=== PATIENT | female | born 1935 | race Caucasian/White ===

== ENCOUNTER 2017-12-31 05:24 | Day surgery (SDC) | payer OTHER ==
[2017-12-08 09:01] LABS: URINE BILIRUBIN NEGATIVE (Negative); URINE BLOOD NEGATIVE (Negative); URINE CLARITY CLEAR; URINE COLOR YELLOW; URINE GLUCOSE-RANDOM* NEGATIVE (Negative); URINE KETONES NEGATIVE (Negative); URINE LEUKOCYTES-REFLEX NEGATIVE (Negative); URINE NITRITE-REFLEX NEGATIVE (Negative); URINE PROTEIN (DIPSTICK) NEGATIVE (Negative); URINE SPECIFIC GRAVITY >= 1.030 (1.005-1.035); URINE UROBILINOGEN 0.2 E.U./dl (0.2-1.0)
[2017-12-08 09:04] LABS: PROTIME 10.2 Seconds (9.3-11.4)
[~2017-12-31] VITALS: Ht 160 cm; Wt 62.6 kg
--- NOTE | ~2017-12-31 | O ---
[facility] [place] [address] OPERATIVE REPORT Name: THIERNO LOYOLA STEPHANIE Room #: 411-P [facility] M.R.#: [id number] Admission: 12/31/17 Attend Phys: Davon Bell Discharge: Date of : 37 Report #: [id number] THIS REPORT FOR: //name// CC: Davon Rey DATE OF SERVICE: 12/31/2017 PREOPERATIVE DIAGNOSES: Left shoulder pain, osteoarthritis, partial thickness rotator cuff tear, biceps tendinopathy. POSTOPERATIVE DIAGNOSES: Left shoulder osteoarthritis, biceps tendinopathy, partial thickness anterior supraspinatus rotator cuff tear. PROCEDURE: Left total shoulder arthroplasty with open biceps tenodesis and rotator cuff repair. SURGEON: Davon Escobedo MD ANESTHESIA: General. FLUIDS: 850 mL crystalloid. ESTIMATED BLOOD LOSS: Approximately 75 mL. IMPLANTS UTILIZED: DePuy [employer] Unite size 10 stem porous-coated, 135 degree proximal body with a 44 x 18 mm eccentric humeral head and a 40 mm anchor peg glenoid. DESCRIPTION OF PROCEDURE: After proper identification of the patient and the operative site in preoperative holding area, the operative site was signed by myself. Prophylactic antibiotics were given. The patient elected to receive an ultrasound-guided interscalene block after reviewing the risks, benefits, alternatives and potential complications with anesthesia. After induction of satisfactory general endotracheal anesthesia, the left shoulder was examined. It was stable throughout a range of motion comparable to the preoperative assessment. The patient was carefully positioned in a beach chair position with head of bed elevated approximately 40 degrees. Great care was taken with positioning of the head to keep this in a neutral position. The patient had an indwelling interscalene block catheter, which had remained in place as well. The left shoulder was sterilely prepped and draped in usual manner. Final skin draping was with Ioban. A LV [employer] limb positioning system was utilized throughout the entire procedure. Anterior deltopectoral approach was planned. Skin was incised sharply. Full thickness skin flaps were developed. The deltopectoral interval was identified. Cephalic vein was retracted laterally. Subdeltoid adhesions were carefully freed and a brown retractor was used to [address] [address] OPERATIVE REPORT Name: THIERNO LOYOLA STEPHANIE Room #: 411-P [facility] M.Osvaldo.#: [id number] Admission: 12/31/17 Attend Phys: Davon Bell Discharge: Date of : 37 Report #: [id number] retract the deltoid. Long head of biceps tendon was tenodesed to the undersurface of the pectoralis major tendon. It was followed up to the bicipital groove, which was opened. Extensive tenosynovitis was appreciated around the bicipital groove and rotator interval was then opened. Some mild partial thickness tearing of the more anterior supraspinatus was appreciated and this was amenable to repair with rotator interval closure and did not appear to compromise the overall plan for regular total shoulder arthroplasty. At this point, the anterior circumflex vessels were identified, ligated and cauterized. A lesser tuberosity osteotomy was performed of the subscapularis and this was released with an osteotome and then the remaining capsule was released with cautery. The humeral head was rotated out into the wound. A complete loss of cartilage and eburnation of the bone was appreciated. Large peripheral spurring was removed with an osteotome or with a rongeur. A 135 degree humeral head cut in approximately 25 degrees of retroversion matching her the [place] version was performed. The remainder of the rotator cuff was intact. Humeral head osteotomy was performed. Head measured 44 x 18 mm, provided the best recreation of the proximal humeral anatomy. Any remaining peripheral osteophytes were carefully removed. Canal was reamed up to a size 10 stem, which matched the preoperative templating. A trial implant was utilized after it had been broached for the fins. This was fully seated. Protection plate was applied. Shoulder was reduced. Anterior capsule was carefully divided off the subscapularis. Great care was taken to preserve and identify and protect the axillary nerve throughout the entire procedure. The remaining long head of the biceps tendon stump, labrum and inferior capsule was carefully released directly off the glenoid. A complete chondral loss was noted on the glenoid. Any remaining soft tissue around the glenoid was carefully debrided. Humerus was externally rotated and there was excellent glenoid visualization. A 40 mm glenoid provided the best overall fit and size match. The glenoid guide for the guide pin was placed. This guide pin was inserted into the center of the glenoid. This was then reamed until there was a symmetric bony support of the subchondral bone for the implant and small amount of the high side anteriorly was removed with the reaming as compared to posteriorly. The remaining bony lip was then carefully removed. Step drill was utilized. Bone was saved for bone grafting. At this point, the multipin guide for the anchor peg glenoid was carefully impacted into position. Peripheral pegs were drilled. Derotation pegs were utilized and all 3 pegs were contained as well as central pin. A 40 mm trial provided excellent fit and stability. This was removed. Joint was thoroughly irrigated with normal saline. FloSeal was utilized for anticoagulation and the implant was bone grafted and then bone cement was prepared on the backtable after the FloSeal was irrigated out. The peripheral pegs were cemented with the Tuohy syringe and pressurized. Any excess bone was carefully removed and glenoid was impacted into position. It was fully seated, stable and held into position until the cement had cured. At this point, a trial 44 x 18 mm head compared to a 15 mm head was trialled and the 18 provided the best recreation of the proximal humeral anatomy in AP translation. Trial implants were removed. Four drill holes were placed within the anterior aspect [address] [address] OPERATIVE REPORT Name: THIERNO LOYOLA [facility] Room #: 411-P [facility] M.R.#: [id number] Admission: 12/31/17 Attend Phys: Davon Bell Discharge: Date of : 37 Report #: [id number] of the humerus where #2 FiberWires were passed. The stem was assembled on the backtable. It was porous-coated. The inferior 2 sutures were wrapped around the stem. The stem was impacted into position and had excellent fit and then a 44 mm x 18 mm head was impacted into position. There was a satisfactory recreation of the proximal humeral anatomy. The joint was reduced and had approximately 50% translation posteriorly. At this point, the subscapularis was repaired with four #2 FiberWires in a modified Jerry-Denis technique and the anterior leading edge of the supraspinatus and the rotator cuff was repaired with #2 FiberWire in a simple [id number] fashion. This nicely reduced the partial thickness tearing and the rotator interval. The patient could easily be rotated 40 degrees without any undue tension on the subscapularis. The wound was thoroughly irrigated with normal saline. One gram of vancomycin powder was utilized. A 0 Vicryl was used to close the deltopectoral fascia, 2-0 Vicryl of the more subcutaneous tissues and final skin closure was with running 3-0 Monocryl. Dermabond was applied. Sterile dressing and a sling was applied. The patient will utilize a sling for 4 weeks postoperatively. <ELECTRONICALLY SIGNED> By: Davon Escobedo MD 01/01/18 1316 [id number] 1730 Davon Escobedo MD /nt
[~2017-12-31 05:24] MED LIST: CALCIUM 500 +1 EAC5 PO; MULTIVITAMINS PO; NORCO 5-325 TA1 EACH PO; TYLENOL EXTRA500 MG PO
[2017-12-31 12:50] VITALS: BP 136/74
[2017-12-31 20:00] VITALS: BP 131/79
[2018-01-01] VITALS: BP 125/73
[2018-01-01 04:00] VITALS: BP 123/68
[2018-01-01 06:45] LABS: HEMATOCRIT 36.2 % (37.0-47.0); HEMOGLOBIN 11.9 gm/dL (12.0-15.0)
[2018-01-01 06:50] LABS: POTASSIUM 4.4 mmol/L (3.5-5.1)
[2018-01-01 08:07] VITALS: BP 136/69
[2018-01-01 15:53] VITALS: BP 136/69
[2018-01-01 16:26] VITALS: BP 136/69
== END 2018-01-01 16:50 | disposition home or self-care (01) ==
LOC: OR 05:24 → TBA 05:26 → PRE 11:20 → EDSTATUS 14:58 → OR 15:01 → 4N 15:56 → ENTRNSPT 01-01 16:34 → OR 01-01 16:50
PROVIDERS: Orthopaedic Surgery Sports Medicine
DX: M19.012 Primary osteoarthritis, left shoulder (principal); M75.22 Bicipital tendinitis, left shoulder; M75.102 Unspecified rotator cuff tear or rupture of left shoulder, not specified as traumatic; Z88.2 Allergy status to sulfonamides; Z88.8 Allergy status to other drugs, medicaments and biological substances; Z85.828 Personal history of other malignant neoplasm of skin; Z90.710 Acquired absence of both cervix and uterus; Z98.890 Other specified postprocedural states

== ENCOUNTER → 2019-05-14 | Outpatient (CLI) | payer OTHER | LOC: RAD 16:09 | DX: Z01.818 Encounter for other preprocedural examination (principal); R06.02 Shortness of breath ==

== ENCOUNTER 2019-05-31 09:02 | Inpatient (IN) | payer OTHER ==
[~2019-05-31] VITALS: Ht 160 cm; Wt 60.8 kg
[2019-05-31 10:18] LABS: HEMATOCRIT 39.1 % (37.0-47.0); HEMOGLOBIN 13.1 gm/dL (12.0-15.0); MCH 31.2 pg (26.0-34.0); MCHC 33.4 g/dL (28.0-37.0); MCV 93.2 fL (80.0-100.0); RBC 4.19 mil/uL (4.20-5.00); WBC 4.7 thou/uL (4.0-11.0)
[2019-05-31 10:19] LABS: URINE BILIRUBIN NEGATIVE (Negative); URINE BLOOD NEGATIVE (Negative); URINE CLARITY SL CLOUDY; URINE COLOR YELLOW; URINE GLUCOSE-RANDOM* NEGATIVE (Negative); URINE KETONES NEGATIVE (Negative); URINE LEUKOCYTES-REFLEX TRACE (Negative); URINE NITRITE-REFLEX NEGATIVE (Negative); URINE PROTEIN (DIPSTICK) NEGATIVE (Negative); URINE SPECIFIC GRAVITY 1.015 (1.005-1.035); URINE UROBILINOGEN 0.2 E.U./dl (0.2-1.0)
[2019-05-31 10:29] LABS: CALCIUM 9.7 mg/dL (8.5-10.1); CREATININE 0.9 mg/dL (0.6-1.0); POTASSIUM 4.8 mmol/L (3.5-5.1)
[2019-05-31 10:32] LABS: PROTIME 10.2 Seconds (9.3-11.4)
[2019-06-09 18:35] VITALS: BP 117/62
[2019-06-09 19:44] VITALS: BP 135/79
[2019-06-10 04:54] VITALS: BP 118/67
--- NOTE | 2019-06-10 06:12 | NUR ---
ASSUMED CARE OF PT @1900 PT ASSESSED AT START OF SHIFT A&OX4 DENIES PAIN. ARM BRACE IN RT SHOULDER INTACT AND ICE PACK INTACT. IV FLUIDS INFUSING. PT HAS URINE FREQ. FALL PREC IN PLACE AND CALL LIGHT WITHIN REACH WILL CONT WITH POC TILL EOS
[2019-06-10 06:14] LABS: HEMATOCRIT 33.8 % (37.0-47.0); HEMOGLOBIN 11.2 gm/dL (12.0-15.0)
[2019-06-10 06:25] LABS: POTASSIUM 4.1 mmol/L (3.5-5.1)
[2019-06-10 07:40] VITALS: BP 111/62
[2019-06-10 14:24] VITALS: BP 111/62
--- NOTE | 2019-06-10 17:18 | NUR ---
ASSESSMENT-PT LIVES AT HOME ALONE BUT SHE HAS 8 CHILDREN IN THE AREA AND SHE SAYS THEY WILL BE ABLE TO ASSIST HER NEEDED. PT SAYS PRIOR TO THIS SHE WAS STILL WORKING WELL. PT DRIVES. PT SAYS SHE PLANS TO DC THIS AFTERNOON AND VOICES NO CONCERNS RELATED TO DC. FOLLOWING TO ASSIST WITH DC PLANNING.
--- NOTE | 2019-06-10 21:33 | NUR ---
PATIENT ALERT AND ORIENTED AND DISCHARGED WITH SON TO HOME IN STABLE CONDITION WITH DISCHARGE ORDERS, PRESCRIPTIONS, ALL PERSONAL BELONGINGS.
--- NOTE | 2019-07-07 11:38 | O ---
[facility] [place] [address] OPERATIVE REPORT Name: THIERNO LOYOLA STEPHANIE Room #: 439-P [facility] M.R.#: [id number] Admission: 06/09/19 Attend Phys: Davon Bell Discharge: 06/10/19 Date of : 37 Report #: [id number] THIS REPORT FOR: //name// CC: Davon Rey DATE OF SERVICE: 06/09/2019 PREOPERATIVE DIAGNOSES: Right shoulder pain, osteoarthritis, biceps tendinopathy. POSTOPERATIVE DIAGNOSES: Right shoulder pain, osteoarthritis, biceps tendinopathy. PROCEDURE PERFORMED: Right total shoulder arthroplasty with open biceps tenodesis. SURGEON: Davon Escobedo MD TEXTILE BROKER: Phuong Garcia PA-C. ANESTHESIA: General with preoperative ultrasound-guided interscalene block. FLUIDS: 500 mL crystalloid. ESTIMATED BLOOD LOSS: Approximately 75 mL. IMPLANTS UTILIZED: DePuy [employer] Unite size 10 stem and proximal body 135 degree, 44 x 18 mm eccentric humeral head and a size 40 [employer] [place] Peg glenoid. DESCRIPTION OF PROCEDURE: After proper identification of the patient and operative site in the preoperative holding area, the operative site was signed by myself. Prophylactic antibiotics were given. The patient elected to receive a block after reviewing the risks, benefits, alternatives and potential complications with anesthesia. After a satisfactory block, the patient was brought back to the operative suite. After induction of satisfactory general endotracheal anesthesia, the patient was carefully positioned; beach chair was utilized. Head of bed was elevated to approximately 40 degrees, and the head and neck were carefully positioned. Shoulder was sterilely prepped and draped with final skin draping with Ioban. A [employer] limb positioning system was utilized throughout the entire procedure. Anterior deltopectoral approach was planned. Skin was incised sharply. Full thickness skin flaps were developed. Cephalic vein was identified and retracted laterally. Subdeltoid space was carefully opened. A Tom deltoid retractor was used to retract the soft tissues. Long head of the biceps tendon demonstrated some tenosynovitis and [address] [address] OPERATIVE REPORT Name: THIERNO LOYOLA [facility] Room #: 439-P [facility] M.R.#: [id number] Admission: 06/09/19 Attend Phys: Davon Bell Discharge: 06/10/19 Date of : 37 Report #: [id number] partial thickness tearing within the bicipital groove. Biceps tenodesis was performed to the undersurface of the pectoralis major using #2 FiberWire. Anterior circumflex vessels were identified and ligated, as well as cauterized. The rotator interval was opened and a lesser tuberosity osteotomy was performed with a flexible osteotome. At this point, the inferior capsule was carefully released off of the humeral head. Pronounced spurring was noted. Advanced degenerative change was appreciated about the glenohumeral joint with complete loss of chondral surface noted on both sides of the joint. The rotator cuff otherwise appeared intact with respect to the supraspinatus and infraspinatus; some thinning of the cuff was noted, though. At this point, the osteophytes were carefully removed. A 135-degree cutting guide was utilized to plan a humeral head osteotomy. At approximately 25 degrees of retroversion, humeral head was osteotomized. Cuff remained intact. Peripheral osteophytes were carefully removed. Next, the stem was reamed up to a size 10 stem, which matched the templating in the opposite side prosthesis. This trial stem was carefully impacted into position and a protection plate was applied. At this point, the anterior capsule was excised from the subscapularis. It was done so with a right angle clamp. Care was taken to identify and protect the axillary nerve throughout the entire procedure. There was pronounced thickening of the anterior capsule. The joint was distracted with a lamina refinish technician, and the labrum and capsule inferiorly were released directly off the glenoid as well as around the back posteriorly. Remaining labrum and biceps tendon were debrided. There was excellent exposure of the glenoid. Trial utilized for sizing revealed that a size 40 glenoid provided the best overall fit and recreation of her anatomy. Guidepin was placed within the glenoid vault. Step drill was utilized. Bone graft was saved. This was done after the glenoid face was reamed and any peripheral soft tissue was carefully debrided. At this point, the peripheral pegs were drilled. Derotation pegs were utilized. These were all contained. Joint was thoroughly irrigated with antibiotic irrigant. FloSeal was utilized to dry the pegs. The peripheral pegs were cemented with the Tuohy syringe and the trial implant was seated nicely prior to this, and the final implant was bone grafted and with the cement pressurized into the peripheral pegs, it was carefully impacted into position. It had excellent fit and stability. It was held in place until the cement had cured. Next, this was protected with a plastic dura. A 44 x 18 eccentric humeral head provided the best recreation of the proximal humeral anatomy of the joint reduced. It had 50% translation posteriorly and nicely recreated the proximal humeral anatomy. Trial implants were removed. [employer] Unite brosteotome was utilized and then the stem was prepared on the back table. Some bone graft from the humeral head was placed around the metaphyseal portion of the stem. The patient did have a soft cancellous bone, and drill holes were placed in the anterior aspect of the humerus and bicipital groove. Four #2 FiberWire were passed. Stem was carefully impacted into position with the bone graft in the inferior, 2 sutures were placed around the stem. Humeral head with the appropriate eccentricity was placed and impacted into position. The joint was reduced and had excellent stability. Subscapularis was repaired and the joint was thoroughly irrigated [facility] [address] [place] [address] OPERATIVE REPORT Name: THIERNO LOYOLA STEPHANIE Room #: 439-P [facility] M.R.#: [id number] Admission: 06/09/19 Attend Phys: Davon Bell Discharge: 06/10/19 Date of : 37 Report #: [id number] with antibiotic irrigant using the four #2 FiberWire and then the lateral portion of the bicipital groove was closed. A 1 gram vancomycin powder was utilized, half at deep, half of it more superficial. The 0-Vicryl was used to close the deltopectoral interval, 2-0 Vicryl for the subcutaneous tissues, final skin closure with a running 4-0 Monocryl. Dermabond was applied. Sterile dressing was applied as well as a sling and abduction pillow. This will be utilized for 4 weeks postoperatively. Qualified payroll assistant utilized throughout the entire procedure to aid in patient limb positioning, visualization and retraction of the soft tissues, instrument passage, closure, and sling and dressing application. The patient could easily be externally rotated 45 degrees without any undue tension on the repair construct. <ELECTRONICALLY SIGNED> By: Davon Escobedo MD 07/07/19 1138 1200 1455 Davon Escobedo MD /nt
== END 2019-06-10 14:44 | disposition home or self-care (01) | DRG 483 ==
LOC: ADMC 09:02 → 4S 06-09 06:36 → TBA 06-09 06:36 → PRE 06-09 08:52 → ADMC 06-09 09:13 → 4S 06-09 13:11 → PRE 06-09 13:41 → ADMC 06-09 14:52 → ENTRNSPT 06-10 14:34 → EDTRNSPTSTS 06-10 14:36 → 4S 06-10 14:44
PROVIDERS: Physician Assistant Surgical; ADMIT Orthopaedic Surgery Sports Medicine
PROC: 0RRJ0JZ Replacement of Right Shoulder Joint with Synthetic Substitute, Open Approach (ICD-10-PCS; principal; 2019-06-09)
DX: M19.011 Primary osteoarthritis, right shoulder (principal); M75.21 Bicipital tendinitis, right shoulder; Z96.612 Presence of left artificial shoulder joint; Z88.6 Allergy status to analgesic agent; Z88.2 Allergy status to sulfonamides; Z98.42 Cataract extraction status, left eye; Z98.41 Cataract extraction status, right eye; Z90.710 Acquired absence of both cervix and uterus; Z79.899 Other long term (current) drug therapy
CPT/HCPCS: 10102; 50010; 50101; 50172; 50386; 50417; 50697; 50733; 51751; 51771; 52138; 52256; 53000; 53078; 54118; 55430; 56524; 56525; 56526; 56530; 57095; 57103; 62110; 62900; 64039; 70005

== ENCOUNTER → 2020-09-20 | Outpatient (CLI) | payer OTHER | LOC: BC 10:10 | PROVIDERS: ATTEND Neuromusculoskeletal Medicine & OMM | DX: R92.1 Mammographic calcification found on diagnostic imaging of breast (principal) ==